=== PATIENT | female | born 1970 | race Caucasian/White ===

== ENCOUNTER 2018-10-04 21:22 | Observation (INO) | payer MEDICAID ==
[~2018-10-04] VITALS: Ht 167.6 cm; Wt 101.2 kg
[2018-10-04 21:31] VITALS: Ht 167.6 cm; Wt 101.2 kg
[2018-10-04] MEDS ORDERED: ASPIRIN 81 MG TAB PO STA (21:42)
[2018-10-04] MEDS ORDERED: NITROGLYCERIN 2% 1 GM OINT PKT TD STA (21:42)
[2018-10-04] MEDS ORDERED: NITROGLYCERIN (SL) 0.4 MG TAB SL PRN (22:00)
[2018-10-04] MEDS ORDERED: morphine 4 MG/ML VIAL IV STA (22:20)
[2018-10-04] MEDS ORDERED: ONDANSETRON 4 MG INJ IV STA (22:20)
--- NOTE | 2018-10-04 22:25 | ERD ---
ER Documentation Chief Complaint Chief Complaint C/O LT SIDED CP RADIATING TO BACK SINCE LAST NIGHT, LT ARM NUMBNESS HPI During the patient's encounter translation services were utilized Language: [Aremenian] Source: [Family] 48-year-old female history borderline BMI who presents to the emergency with chest pain. 24 hours of symptoms including chest pressure that is pressure-like rating to the left arm without migratory pain to the back. The patient does describe some generalized fatigue, left arm numbness and occasional headaches consistent with chronic headaches. Patient denies any pleuritic pain fevers chills or cough. The patient denies any recent travel, immobilization or calf swelling. Pain is currently presently 5 out of 10. ROS All systems reviewed and are negative except as per history of present illness. Medications Home Meds No Active Prescriptions or Reported Meds Allergies Allergies: Coded Allergies: No Known Allergy (Unverified , 10/04/18) PMhx/Soc Medical and Surgical Hx: pt denies Medical Hx, pt denies Surgical Hx Hx Alcohol Use: No Hx Substance Use: No Hx Tobacco Use: No Smoking Status: Never smoker FmHx Family History: No diabetes Physical Exam Vitals Vital Signs Date Temp Pulse Resp B/P (MAP) Pulse Ox O2 O2 Flow FiO2 Time Delivery Rate 10/04/18 97.8 89 20 124/70 100 Room Air 21:42 (88) 10/04/18 97.8 59 20 121/79 100 21:31 (93) Physical Exam General: Well developed, well nourished, no acute distress Head: Normocephalic, atraumatic. Eyes: Pupils equally reactive, EOM intact ENT: Moist mucous membranes Neck: Supple, no lymphadenopathy Respiratory: Lungs clear bilaterally, no distress Cardiovascular: RRR, no murmurs, rubs, or gallops Abdominal: Soft, non-tender, non-distended, no peritoneal signs : Deferred MSK: No edema, no unilateral swelling, 5/5 strength Neurologic: Alert and oriented, moving all extremities, normal speech, no focal weakness, no cerebellar signs Skin: No rash Psych: Normal mood Result Diagram: 10/04/18214910/04/182149 Results 24 hrs Laboratory Tests Test 10/04/18 21:50 10/04/18 22:10 White Blood Count 9.0 10^3/ul Red Blood Count 4.41 10^6/ul Hemoglobin 12.4 g/dl Hematocrit 38.8 % Mean Corpuscular Volume 88.0 fl Mean Corpuscular Hemoglobin 28.1 pg Mean Corpuscular Hemoglobin Concent 32.0 g/dl Red Cell Distribution Width 12.8 % Platelet Count 288 10^3/UL Mean Platelet Volume 10.7 fl Immature Granulocytes % 0.200 % Neutrophils % 45.5 % Lymphocytes % 44.6 % Monocytes % 6.3 % Eosinophils % 3.0 % Basophils % 0.4 % Nucleated Red Blood Cells % 0.0 /100WBC Immature Granulocytes # 0.020 10^3/ul Neutrophils # 4.1 10^3/ul Lymphocytes # 4.0 10^3/ul Monocytes # 0.6 10^3/ul Eosinophils # 0.3 10^3/ul Basophils # 0.0 10^3/ul Nucleated Red Blood Cells # 0.0 10^3/ul Sodium Level 140 mmol/L Potassium Level 4.0 mmol/L Chloride Level 104 mmol/L Carbon Dioxide Level 26 mmol/L Anion Gap 10 Blood Urea Nitrogen 13 mg/dl Creatinine 0.49 mg/dl Est Glomerular Filtrat Rate mL/min > 60 mL/min Glucose Level 97 mg/dl Calcium Level 10.0 mg/dl Troponin I < 0.012 ng/ml POC Beta HCG, Qualitative NEGATIVE Current Medications Medications Dose Sig/Breana Start Time Status Last (Trade) Ordered Route PRN Stop Time Admin Dose Reason Admin Aspirin 162 mg ONCE STAT 10/04/18 DC 10/04/18 (Aspirin) PO 21:42 22:10 10/04/18 21:43 1 inch ONCE STAT 10/04/18 DC 10/04/18 Nitroglycerin TD 21:42 22:10 10/04/18 21:43 (Nitroglyceri n 2% Oint) 1 tab Q5M UP TO 3 10/04/18 Nitroglycerin DOSES PRN 22:00 SL .CHEST (Nitroglyceri PAIN n (Sl Tab) 0.4 Mg) Morphine 4 mg ONCE STAT 10/04/18 DC 10/04/18 Sulfate IV 22:20 22:37 (morphine) 10/04/18 22:21 Ondansetron 4 mg ONCE STAT 10/04/18 DC 10/04/18 HCl (Zofran IV 22:20 22:37 Inj) 10/04/18 22:21 Ondansetron 4 mg ER BRIDGE 3/22/19 HCl (Zofran PRN IV 00:30 Inj) NAUSEA/VOMITI 10/06/18 00:29 NG 650 mg ER BRIDGE 10/05/18 Acetaminophen PRN PO 00:30 (Tylenol .MILD PAIN 10/06/18 00:29 Tab) 1-3 OR TEMP Procedures/MDM EKG, MONITORS, & DIAGNOSTIC IMAGING: EKG: I reviewed and interpreted a 12-lead EKG. Rhythm: Normal sinus rhythm ST Changes: No contiguous ST segment elevations T waves: No contiguous T wave inversions Impression: No evidence of acute cardiac ischemia Repeat EKG: EKG: I reviewed and interpreted a 12-lead EKG. Rhythm: Normal sinus rhythm ST Changes: No contiguous ST segment elevations T waves: No contiguous T wave inversions Impression: No evidence of acute cardiac ischemia Chest x-ray: I reviewed and interpreted a 1 view of the chest Mediastinum: No enlargement Cardiac silhouette: No cardiomegaly Airspace: Clear lung michel bilaterally without evidence of pneumothorax Bones: No evidence of fracture PROCEDURES: None LAB INTERPRETATION: * Negative troponin MEDICAL DECISION MAKING: The patient's history, physical exam and clinical presentation is concerning for possible cardiogenic etiology and acute coronary syndrome. I do not have a better alternative diagnosis. The patient's initial blood pressure was normal. During her ER course her blood pressure did escalate in the 200 range. Patient did not have any change in her blood pressure. Consider possible hypertensive urgency. I do not believe this is consistent with dissection given the duration of symptoms and normal blood pressure at home without alternative risk factors for dissection. The patient does not have migratory pain that would lead me to this diagnosis. As long his mediastinum is normal and chest x-ray do not believe CT of the chest is necessary. Based on the patient's clinical exam and history and risk factors, I have a much lower clinical concern for pulmonary embolism, acute aortic dissection, pneumothorax, pneumonia, cardiac tamponade HEART Score: 3 MACE Rate: 1.7% Shared Decision Making: We had a conversation regarding risk stratification, MACE rate, and the risks, benefits, alternatives of disposition planning options. Disposition planning: Family would like to discuss discharge planning and understand my recommendation of hospitalization ER COURSE: * Aspirin nitro morphine provided * Chest pain and blood pressure improved. * Patient request inpatient hospital station which I believe is reasonable based on her goals of care, risk stratification discussion. CONSULTATION: None DISPOSITION PLAN: Telemetry admission for management of chest pain to rule out acute coronary syndrome, serial enzymes, risk stratification and consideration of provocative testing CONSULTATION: Accepting care team and consultations: I discussed the current laboratory data, diagnostic imaging and emergency care provided. Admitting team: Dr. Draper Admitting team indication: Insurance directed Departure Diagnosis: Primary Impression: Chest pain Chest pain type: unspecified Qualified Codes: R07.9 - Chest pain, unspecified Additional Impression: Hypertensive urgency Condition: Stable JAJA FARIA MD Oct 04, 2018 22:24
[2018-10-05] VITALS (10 sets, daily range): BP systolic 109–142; BP diastolic 55–73; PULSE 57–86; RESP 18–19
[2018-10-05] MEDS ORDERED: BISACODYL (EC) 5 MG TAB PO PRN (00:30)
[2018-10-05] MEDS ORDERED: ONDANSETRON 4 MG INJ IV PRN (00:30)
[2018-10-05] MEDS ORDERED: NACL 0.9% 3 ML SYG IV SCH (00:30)
[2018-10-05] MEDS ORDERED: ACETAMINOPHEN 325 MG TAB PO PRN ×2 (00:30)
[2018-10-05] MEDS ORDERED: NITROGLYCERIN (SL) 0.4 MG TAB SL PRN (00:30)
[2018-10-05] MEDS ORDERED: DOCUSATE SODIUM 100 MG CAP PO PRN (00:30)
--- NOTE | 2018-10-05 03:19 | HP ---
Date/Time of Note Date/Time of Note DATE: 10/05/18 TIME: 03:18 Assessment/Plan VTE Prophylaxis SCD applied (from Nsg): Yes Pharmacological prophylaxis: NA/contraindicated Pharm contraindication: low risk/ambulating Lines/Catheters IV Catheter Type (from Nrsg): Saline Lock Assessment/Plan Hospital Course This is a 48-year female being admitted to the telemetry floor for: #1: Chest pain: Rule out ACS versus anginal equivalent. Patient does report symptoms of chest pain on exertion and at rest With it being worse over the last 24 hours. Will check cardiac enzymes x3, the first that was negative. Will order an echocardiogram. PRN nitro/morphine for pain. Will check hemoglobin A 1C, lipid panel, TSH. Will consult cardiology Dr. Combs as I do feel patient may benefit from a stress test. #2 obesity: We will check hemoglobin A 1C, lipid panel, TSH, encourage diet and lifestyle modification #3 asthma: Monitor closely PRN inhalers indicated #4 DVT GI prophylaxis: SCDs, no GI prophylaxis indicated Result Diagram: 10/04/18214910/04/182149 Results 24hrs Laboratory Tests Test 10/04/18 21:50 10/04/18 22:10 White Blood Count 9.0 Red Blood Count 4.41 Hemoglobin 12.4 Hematocrit 38.8 Mean Corpuscular Volume 88.0 Mean Corpuscular Hemoglobin 28.1 L Mean Corpuscular Hemoglobin Concent 32.0 Red Cell Distribution Width 12.8 Platelet Count 288 Mean Platelet Volume 10.7 H Immature Granulocytes % 0.200 Neutrophils % 45.5 Lymphocytes % 44.6 Monocytes % 6.3 Eosinophils % 3.0 Basophils % 0.4 Nucleated Red Blood Cells % 0.0 Immature Granulocytes # 0.020 Neutrophils # 4.1 Lymphocytes # 4.0 H Monocytes # 0.6 Eosinophils # 0.3 Basophils # 0.0 Nucleated Red Blood Cells # 0.0 Sodium Level 140 Potassium Level 4.0 Chloride Level 104 Carbon Dioxide Level 26 Anion Gap 10 Blood Urea Nitrogen 13 Creatinine 0.49 Est Glomerular Filtrat Rate mL/min > 60 Glucose Level 97 Calcium Level 10.0 Troponin I < 0.012 POC Beta HCG, Qualitative NEGATIVE HPI/ROS Admit Date/Time Admit Date/Time Oct 05, 2018 at 00:06 Hx of Present Illness Chief complaint: Chest pain times 1 day This is a 48-year-old female with a history of asthma who presented s to the emergency with chest pain. 24 hours of symptoms including chest pressure that is pressure-like rating to the left arm without migratory pain to the back. The patient does describe some generalized fatigue, left arm numbness and occasional headaches consistent with chronic headaches. Patient denies any pleuritic pain fevers chills or cough. The patient denies any recent travel, immobilization or calf swelling. Patient does report that she received relief with morphine in the emergency department for the pain. She describes the pain as a pressure/burning sensation on her chest. She states that she has been experiencing pain at rest and on exertion for the last few weeks. She denies any lower extremity swelling. Allergies: NKDA Medications: None ROS Const: As per HPI Eyes : No pain discharge or redness or change in visual acuity ENT: No pain, sore throat, congestion, congestion, dysphagia or discharge Respiratory: No shortness of breath, cough, sputum, wheezing, or pleuritic pain Cardiovascular: As per HPI GI : no change in appetite, abdominal pain, nausea, vomiting, diarrhea, constipation, or change in the color his stool Genitourinary: No dysuria, hematuria, flank pain , discharge or CVA tenderness Musculoskeletal: No joint pain, back pain, neck pain, restricted range of motion in neck or joints Skin: No rash, bruising or hives Neuro: No headache, dizziness, syncope, seizure, focal weakness Endocrine: No polyuria, polydipsia, temperature intolerance Psych: No hallucination, depression, anxiety or suicidal ideation PMH/Family/Social Past Medical History Asthma Medications Current Medications Nitroglycerin (Nitroglycerin (Sl Tab) 0.4 Mg) 1 tab Q5M UP TO 3 DOSES PRN SL .CHEST PAIN; Start 10/04/18 at 22:00 Ondansetron HCl (Zofran Inj) 4 mg ER BRIDGE PRN IV NAUSEA/VOMITING; Start 10/05/18 at 00:30; Stop 10/06/18 at 00:29 Acetaminophen (Tylenol Tab) 650 mg ER BRIDGE PRN PO .MILD PAIN 1-3 OR TEMP; Start 10/05/18 at 00:30; Stop 10/06/18 at 00:29 IV Flush (NS 3 ml) 3 ml PER PROTOCOL IV ; Start 10/05/18 at 00:30 Aspirin (Aspirin) 81 mg DAILY PO ; Start 10/05/18 at 09:00 Nitroglycerin (Nitroglycerin (Sl Tab) 0.4 Mg) 1 tab Q5M PRN SL .CHEST PAIN; Start 10/05/18 at 00:30 Acetaminophen (Tylenol Tab) 650 mg Q6H PRN PO .PAIN 1-3 OR TEMP; Start 10/05/18 at 00:30 Morphine Sulfate (morphine) 2 mg Q4H PRN IV .PAIN 7-10; Start 10/05/18 at 00:30 Docusate Sodium (Colace) 100 mg Q12H PRN PO .CONSTIPATION; Start 10/05/18 at 00:30 Bisacodyl (Dulcolax) 5 mg DAILY PRN PO .CONSTIPATION; Start 10/05/18 at 00:30 Coded Allergies: No Known Allergy (Unverified , 10/04/18) Past Surgical History Past Surgical Hx: no surgical history Family History Significant Family History: no pertinent family hx Social History Alcohol Use: occasionally Smoking Status: Never smoker Drug Use: none Exam/Review of Systems Vital Signs Vitals Vital Signs Date Temp Pulse Resp B/P (MAP) Pulse Ox O2 O2 Flow FiO2 Time Delivery Rate 10/05/18 97.6 63 18 142/66 100 Room Air 02:56 (91) Exam Exam General: Patient is a pleasant female currently lying in bed in no acute distress. HEENT: Atraumatic, normocephalic. The pupils are equal, round and reactive. Extraocular motor are intact Neck: Supple with full range of motion. No rigidity or meningismus Chest: Mild left chest wall tenderness to palpation Lungs: Clear to auscultation bilaterally no crackles rales or wheezing Heart: Normal S1-S2, Regular rhythm and rate. No murmur, S3, or S4 Abdomen: Obese, soft , nontender, nondistended , bowel sounds are present. No guarding no rebound tenderness , No masses or organomegaly. No costovertebral temporal angle mass Extremities: Normal to inspection, no edema no cyanosis Neurologic: Normal mental status, speech normal, cranial nerves II through XII are intact, motor and sensory are intact, no focal weakness Additional Comments EKG: Rhythm: Normal sinus rhythm ST Changes: No contiguous ST segment elevations T waves: No contiguous T wave inversions Impression: No evidence of acute cardiac ischemia PROCEDURE: XR Chest. CLINICAL INDICATION: Chest pain TECHNIQUE: Single portable view of the chest was obtained COMPARISON: No priors for comparison FINDINGS: The trachea is midline. The cardiac silhouette is mildly enlarged and pulmonary vascularity are within normal limits. The lungs are clear. The costophrenic angles are sharp. IMPRESSION: 1. Mild cardiomegaly. No evidence of acute cardiopulmonary disease. RPTAT: AAPP Clay Bernal Physician Date Time Electronically viewed and signed by Clay Bernal Physician on 10/04/2018 23:57 JL/ CC: RESHMA PAREKH MD [id number] YVES LOPEZ Oct 05, 2018 03:19
[2018-10-05] MEDS: morphine 2 MG INJ IV PRN ×2 (03:52→17:57)
[2018-10-05] MEDS ORDERED: ALBUTEROL HFA 8 GM INHALER INH PRN (04:00)
[2018-10-05] MEDS: ASPIRIN 81 MG TAB PO SCH (08:53)
--- NOTE | 2018-10-05 12:14 | PN ---
Date/Time of Note Date/Time of Note DATE: 10/05/18 TIME: 12:13 Assessment/Plan VTE Prophylaxis Risk score (from Ns)>0 risk: 2 SCD applied (from Ns): Yes Pharmacological prophylaxis: NA/contraindicated Pharm contraindication: low risk/ambulating Lines/Catheters [facility] Saline Lock Assessment/Plan Hospital Course SUBJECTIVE: Denies any chest pain at this time. OBJECTIVE: Physical Exam General: Obese, 48-year-old female lying in bed in no apparent distress. HEENT: Normocephalic, atraumatic. Eyes: Anicteric sclerae, conjunctivae clear. ENT: Nasal septum midline, oral mucosa moist. Neck supple, no JVD noticed. Respiratory: Bilaterally clear breath sounds. No use of accessory muscles of respiration. No adventitious breath sounds. Cardiovascular: S1, S2 heard. Regular rate and rhythm. Abdomen: Soft, nontender, and nondistended. Bowel sounds positive in all 4 quadrants. Genitourinary: Deferred. Extremities: No cyanosis, no clubbing, no edema. Peripheral pulses palpable. Neurologic: Cranial nerves II through XII grossly intact. The patient is awake, alert, and oriented. Skin: Normal skin turgor. No skin rashes. Labs & Vitals per chart ASSESSMENT & PLAN 48-year-old female with comorbidities including obesity and asthma who came to the emergency room with chief complaint of chest pain. The patient verbalized the pain as pressure-like with a radiation to the left arm. The patient was admitted to inpatient setting for further treatment and evaluation. 1. Chest pain. -To rule out ACS -Monitor serial troponins. -Pending 2D echocardiogram. -Pending cardiology evaluation. -Continue aspirin. 2. Obesity. -BMI 36 kg/m. -Advised weight reduction. 3. Asthma. -Continue PRN ARCHIE. -No evidence of acute exacerbation. 4. Fluids, electrolytes, and nutrition. -Low-cholesterol diet. 5. DVT prophylaxis. -Bilateral SCDs. 6. Plan. -Continue telemetry monitoring. -Await cardiology evaluation The patient was seen in collaboration with Dr. Calzada. - Result Diagram: 10/05/1852110/05/18521 Results 24hrs Laboratory Tests Test 10/04/18 21:50 10/04/18 22:10 10/05/18 05:22 10/05/18 05:23 White Blood Count 9.0 6.3 # Red Blood Count 4.41 3.91 L Hemoglobin 12.4 11.0 L Hematocrit 38.8 34.7 L Mean Corpuscular 88.0 88.7 Volume Mean Corpuscular 28.1 L 28.1 L Hemoglobin Mean Corpuscular 32.0 31.7 L Hemoglobin Concent Red Cell 12.8 12.7 Distribution Width Platelet Count 288 222 # Mean Platelet Volume 10.7 H 10.5 H Immature 0.200 0.300 Granulocytes % Neutrophils % 45.5 42.1 Lymphocytes % 44.6 46.2 Monocytes % 6.3 7.1 Eosinophils % 3.0 3.8 Basophils % 0.4 0.5 Nucleated Red Blood 0.0 0.0 Cells % Immature 0.020 0.020 Granulocytes # Neutrophils # 4.1 2.7 Lymphocytes # 4.0 H 2.9 Monocytes # 0.6 0.5 Eosinophils # 0.3 0.2 Basophils # 0.0 0.0 Nucleated Red Blood 0.0 0.0 Cells # Sodium Level 140 143 Potassium Level 4.0 4.0 Chloride Level 104 105 Carbon Dioxide Level 26 29 Anion Gap 10 9 Blood Urea Nitrogen 13 10 Creatinine 0.49 0.51 Est Glomerular > 60 > 60 Filtrat Rate mL/min Glucose Level 97 88 Calcium Level 10.0 9.5 Troponin I < 0.012 < 0.012 POC Beta HCG, NEGATIVE Qualitative Hemoglobin A1c 5.3 Magnesium Level 2.0 Total Bilirubin 0.4 Direct Bilirubin 0.00 Indirect Bilirubin 0.4 Aspartate Amino 17 Transf (AST/SGOT) Alanine 20 Aminotransferase (AL T/SGPT) Alkaline Phosphatase 60 Total Protein 6.7 Albumin 3.6 Globulin 3.10 Albumin/Globulin 1.16 Ratio Triglycerides Level 63 Cholesterol Level 141 LDL Cholesterol, 84 Calculated HDL Cholesterol 44 Cholesterol/HDL 3.2 Ratio Thyroid Stimulating 3.150 Hormone (TSH) Creatine Kinase 39 Creatine Kinase 1.1 Index Creatinine Kinase MB 0.44 (Mass) Test 10/05/18 09:36 Creatine Kinase 41 Creatine Kinase 0.8 Index Creatinine Kinase MB 0.33 (Mass) Troponin I < 0.012 Exam/Review of Systems Exam Vitals Vital Signs Date Temp Pulse Resp B/P (MAP) Pulse Ox O2 O2 Flow FiO2 Time Delivery Rate 10/05/18 97.5 86 18 113/59 99 11:49 (77) 10/05/18 Room Air 02:56 Intake and Output 10/04/18 10/04/18 10/05/18 1515:00 23:00 07:00 IntakeIntake Total 250 ml BalanceBalance 250 ml Results Results 24hrs Laboratory Tests Test 10/04/18 21:50 10/04/18 22:10 10/05/18 05:22 10/05/18 05:23 White Blood Count 9.0 6.3 # Red Blood Count 4.41 3.91 L Hemoglobin 12.4 11.0 L Hematocrit 38.8 34.7 L Mean Corpuscular 88.0 88.7 Volume Mean Corpuscular 28.1 L 28.1 L Hemoglobin Mean Corpuscular 32.0 31.7 L Hemoglobin Concent Red Cell 12.8 12.7 Distribution Width Platelet Count 288 222 # Mean Platelet Volume 10.7 H 10.5 H Immature 0.200 0.300 Granulocytes % Neutrophils % 45.5 42.1 Lymphocytes % 44.6 46.2 Monocytes % 6.3 7.1 Eosinophils % 3.0 3.8 Basophils % 0.4 0.5 Nucleated Red Blood 0.0 0.0 Cells % Immature 0.020 0.020 Granulocytes # Neutrophils # 4.1 2.7 Lymphocytes # 4.0 H 2.9 Monocytes # 0.6 0.5 Eosinophils # 0.3 0.2 Basophils # 0.0 0.0 Nucleated Red Blood 0.0 0.0 Cells # Sodium Level 140 143 Potassium Level 4.0 4.0 Chloride Level 104 105 Carbon Dioxide Level 26 29 Anion Gap 10 9 Blood Urea Nitrogen 13 10 Creatinine 0.49 0.51 Est Glomerular > 60 > 60 Filtrat Rate mL/min Glucose Level 97 88 Calcium Level 10.0 9.5 Troponin I < 0.012 < 0.012 POC Beta HCG, NEGATIVE Qualitative Hemoglobin A1c 5.3 Magnesium Level 2.0 Total Bilirubin 0.4 Direct Bilirubin 0.00 Indirect Bilirubin 0.4 Aspartate Amino 17 Transf (AST/SGOT) Alanine 20 Aminotransferase (AL T/SGPT) Alkaline Phosphatase 60 Total Protein 6.7 Albumin 3.6 Globulin 3.10 Albumin/Globulin 1.16 Ratio Triglycerides Level 63 Cholesterol Level 141 LDL Cholesterol, 84 Calculated HDL Cholesterol 44 Cholesterol/HDL 3.2 Ratio Thyroid Stimulating 3.150 Hormone (TSH) Creatine Kinase 39 Creatine Kinase 1.1 Index Creatinine Kinase MB 0.44 (Mass) Test 10/05/18 09:36 Creatine Kinase 41 Creatine Kinase 0.8 Index Creatinine Kinase MB 0.33 (Mass) Troponin I < 0.012 Medications Medication Current Medications Nitroglycerin (Nitroglycerin (Sl Tab) 0.4 Mg) 1 tab Q5M UP TO 3 DOSES PRN SL .CHEST PAIN; Start 10/04/18 at 22:00 Ondansetron HCl (Zofran Inj) 4 mg ER BRIDGE PRN IV NAUSEA/VOMITING; Start 10/05/18 at 00:30; Stop 10/06/18 at 00:29 Acetaminophen (Tylenol Tab) 650 mg ER BRIDGE PRN PO .MILD PAIN 1-3 OR TEMP; Start 10/05/18 at 00:30; Stop 10/06/18 at 00:29 IV Flush (NS 3 ml) 3 ml PER PROTOCOL IV ; Start 10/05/18 at 00:30 Aspirin (Aspirin) 81 mg DAILY PO Last administered on 10/05/18at 08:53; Admin Dose 81 MG; Start 10/05/18 at 09:00 Nitroglycerin (Nitroglycerin (Sl Tab) 0.4 Mg) 1 tab Q5M PRN SL .CHEST PAIN; Start 10/05/18 at 00:30 Acetaminophen (Tylenol Tab) 650 mg Q6H PRN PO .PAIN 1-3 OR TEMP; Start 10/05/18 at 00:30 Morphine Sulfate (morphine) 2 mg Q4H PRN IV .PAIN 7-10 Last administered on 10/05/18at 03:52; Admin Dose 2 MG; Start 10/05/18 at 00:30 Docusate Sodium (Colace) 100 mg Q12H PRN PO .CONSTIPATION; Start 10/05/18 at 00:30 Bisacodyl (Dulcolax) 5 mg DAILY PRN PO .CONSTIPATION; Start 10/05/18 at 00:30 Albuterol (Ventolin Hfa) 2 puff Q4H RESP THERAPY PRN INH SHORTNESS OF BREATH; Start 10/05/18 at 04:00 LAKHWINDER PRADHAN NP Oct 05, 2018 12:14
--- NOTE | 2018-10-05 19:45 | RADRPT ---
Echocardiogram Report Patient Name: CHER CONDONPatient ID: [id number] : 1970 (48y 9m)Study Date: 10/05/2018 7:09:36 AM Gender: FAccession #: [id number] Tech: Elvia Torres BRANDON Location: 623 Ref.Physician: YVES LOPEZ Height(Cm): BSA: Weight(Kg): Quality: AdequateAccount #: Procedures: Echocardiographic Report: Transthoracic echocardiogram with complete 2D, M-Mode, and doppler examination. Indications: Chest Pain. Measurements: 2D/M Mode Doppler Measurement Value Normal Range Measurement Value Normal Range LVIDd 2D 4.4 [ 3.8 - 5.2 ] cm AV Peak Mu 1.5 [ 100.0 - 170.0 ] cm/sec LVIDs 2D 2.7 [ 2.2 - 3.5 ] cm AV Peak PG 9.0 [ 2.0 - 9.0 ] mmHg LVPWd 2D 1.1 [ 0.6 - 0.9 ] cm LVOT Peak Mu 1.0 [ 70.0 - 110.0 ] cm/sec IVSd 2D 1.3 [ 0.6 - 0.9 ] cm LVOT Peak PG 4.0 [ 2.0 - 6.0 ] mmHg AoR Diam 2D 2.6 [ 2.3 - 3.1 ] cm MV E Peak Mu 0.7 [ 60.0 - 130.0 ] cm/sec EDV 2D 86.8 [ 46.0 - 106.0 ] ml MV A Peak Mu 0.8 [ 100.0 - 120.0 ] cm/sec ESV 2D 27.5 [ 14.0 - 42.0 ] ml MV E/A 0.8 [ 0.8 - 1.5 ] ratio EF 2D 68.3 [ 54.0 - 74.0 ] percent MV Decel Time 254 [ 104 - 258 ] msec LA Dimen 2D 3.3 [ 2.7 - 3.8 ] cm Lat E` Mu 0.2 [ 10.0 - 15.0 ] cm/sec Lateral E/E` 4.3 [ 1.0 - 2.0 ] ratio Med E` Mu 0.1 cm/sec MV E/A 0.8 [ 0.8 - 1.5 ] ratio TR Peak Mu 2.4 [ 100.0 - 280.0 ] cm/sec TR Peak PG 23.0 mmHg RVSP 26.0 [ 10.0 - 36.0 ] mmHg RA Pressure 3.0 mmHg Findings: Left Ventricle: Lower limits of normal systolic function. Normal left ventricular cavity size. Ejection fraction is visually estimated at 50-55 %. Abnormal Diastolic Function. Right Ventricle: Normal right ventricular size. Normal right ventricular systolic function. Left Atrium: The left atrium is normal in size. Right Atrium: The right atrium is normal in size. Mitral Valve: Normal appearance and function of the mitral valve with trace physiologic regurgitation. Aortic Valve: Normal appearance of the aortic valve. No significant aortic stenosis or insufficiency. Tricuspid Valve: Normal appearance and function of the tricuspid valve with trace physiologic regurgitation. Normal right ventricular systolic pressure. Pulmonic Valve: Normal pulmonic valve appearance. Pericardium: Normal pericardium with no significant pericardial effusion. Aorta: Normal aortic root. IVC: Normal size and normal respiratory collapse consistent with normal right atrial pressure. Conclusions: Lower limits of normal systolic function. Normal left ventricular cavity size. Ejection fraction is visually estimated at 50-55 %. Abnormal Diastolic Function. Normal appearance and function of the tricuspid valve with trace physiologic regurgitation. Normal right ventricular systolic pressure. Normal appearance and function of the mitral valve with trace physiologic regurgitation. Electronically Signed By: lA Combs 2018-10-05 19:43:41 PDT
--- NOTE | 2018-10-05 19:47 | CONS ---
DATE OF ADMISSION: 10/05/2018 DATE OF CONSULTATION: 10/05/2018 TYPE OF CONSULTATION: Cardiology. REASON FOR CONSULTATION: Chest pain, assess for acute coronary syndrome. REQUESTING PHYSICIAN: Yves Draper MD, from the hospitalist service. HISTORY OF PRESENT ILLNESS: Ms. Webster is a 48-year-old female with a history of asthma, hypertension, who presents with complaints of substernal chest pain. The patient states she has had chest pain for a couple of weeks and it began to get worse on the day of admit. The patient states the chest pain continues to come and go both at rest and with exertion and describes it as a pressure-like sensation with a burning component. Upon arrival in the emergency department, temperature was 97.8, blood pressure 121/79, pulse 59, respiratory 20, satting 100%. The patient's labs showed sodium 140, potassium 4.0, creatinine 0.49, BUN 13, troponin negative. White blood cell count 9, hemoglobin 12.4, platelet count of 288. The patient underwent a chest x-ray revealing mild cardiomegaly, no evidence of acute cardiopulmonary abnormalities. The patient's electrocardiogram revealed normal sinus, rate of 69, normal axis, normal intervals, isolated T-wave flattening in aVL. The patient subsequently has been admitted to the floor and since admit to floor has had negative troponins x2. PAST MEDICAL HISTORY: As above in HPI. MEDICATIONS CURRENTLY IN HOSPITAL: 1. Aspirin 81 mg daily. 2. Albuterol. 3. Zofran. 4. Tylenol. 5. Sublingual nitroglycerin p.r.n. 6. Morphine. 7. Colace. 8. Dulcolax. ALLERGIES: NO KNOWN DRUG ALLERGIES. SOCIAL HISTORY: No current tobacco, EtOH or illicit drugs. FAMILY HISTORY: No history of sudden cardiac or early CAD. REVIEW OF SYSTEMS: As above in HPI. CONSTITUTIONAL: No fevers, chills. PULMONARY: No current shortness of breath. CARDIOVASCULAR: Intermittent chest pain. GASTROINTESTINAL: No vomiting. GENITOURINARY: No hematuria. MUSCULOSKELETAL: Degenerative joint disease. PSYCHIATRIC: No documented psych history. NEUROLOGIC: No documented history of CVA. ENDOCRINE: No documented history of diabetes mellitus. PHYSICAL EXAMINATION: VITAL SIGNS: Temperature 97.6, blood pressure 142/66, pulse 63, respiratory rate 18, satting 100%. GENERAL: The patient is alert, awake, complaining of substernal chest pain, left-sided. NECK: JVP approximately is 8 to 9 cm water. CHEST: Fair air movement throughout. HEART: Regular rate and rhythm. Normal S1, S2, I/ systolic murmur, nondisplaced PMI. ABDOMEN: Positive bowel sounds, soft. EXTREMITIES: No significant pitting edema, 1+ pulses bilateral posterior tibial. LABORATORY DATA: Most recently from today, sodium 143, potassium 4.0, creatinine 0.5, BUN 15. LDL 84, HDL 44. White blood cell count 6.3, hemoglobin 11.0, platelet count 222. IMAGING STUDIES: As above in HPI. No further imaging studies for my review at this time. ELECTROCARDIOGRAM: As above in HPI. No further electrocardiograms for my review at this time. IMPRESSION: 1. Chest pain, assess for acute coronary syndrome with negative troponins x2, somewhat atypical for cardiac etiology this time. 2. Abnormal electrocardiogram with nonspecific ST wave abnormalities. 3. History of asthma. 4. Labile hypertension. RECOMMENDATIONS: 1. At this time, we would maintain the patient on telemetry monitoring to follow rhythm and rate closely. 2. We will complete patient's rule out for myocardial infarction and thus send final troponin. 3. Give patient sublingual nitroglycerin for recurrent episodes of chest pain and consider standing oral nitrates for ongoing chest pain. 4. We will follow the patient's 2D echo done for assessment of ejection fraction, wall motion or major valve abnormalities. 5. We will check fasting lipid panel for general risk stratification and initiate lipid-lowering medication as necessary. 6. If patient continues to have chest pain, then at that time we will place patient in for a cardiac stress test to take place in the morning to further assess for possibly significant obstructive coronary artery disease lending to symptoms of chest pain and EKG abnormalities and subsequent admit to the hospital. Thank you for allowing me to take part in the care of this patient. I will continue to follow her very closely with you with further recommendations to be made as the patient progresses through her inpatient hospital clinical course. Dictated By: DANA DAVIS/NALLELY Conf#: [id number] DID#: [id number] CC: YVES DRAPER MD;*EndCC* MTDD
[2018-10-05] MEDS: ISOSORBIDE DINITRATE 10 MG TAB PO SCH (20:23)
[2018-10-06] VITALS (8 sets, daily range): BP systolic 108–144; BP diastolic 54–71; PULSE 57–82; RESP 18
[2018-10-06] MEDS: ASPIRIN 81 MG TAB PO SCH (08:46)
[2018-10-06] MEDS: ISOSORBIDE DINITRATE 10 MG TAB PO SCH (08:46)
[2018-10-06] MEDS ORDERED: REGADENOSON 0.4 MG/5 ML SYG ONE (12:03)
--- NOTE | 2018-10-06 12:44 | CONS ---
Assessment/Plan Assessment/Plan Hospital Course (Demo Recall) IMPRESSION: 1. Chest pain, assess for acute coronary syndrome with negative troponins x2, somewhat atypical for cardiac etiology this time. 2. Abnormal electrocardiogram with nonspecific ST wave abnormalities. 3. History of asthma. 4. Labile hypertension. Recc: -Tele -Contiue asa -Continue oral nitrates -Lexiscan stress test today and if negative ok for d/c from cardiac standpoint. Consultation Date/Type/Reason Admit Date/Time Oct 05, 2018 at 00:06 Initial Consult Date 10/05/18 Type of Consult Cardiology Reason for Consultation chest pain Requesting Provider: ZAKIA MERINO MD Date/Time of Note DATE: 10/06/18 TIME: 12:39 Exam/Review of Systems Vital Signs Vitals Vital Signs Date Temp Pulse Resp B/P (MAP) Pulse Ox O2 O2 Flow FiO2 Time Delivery Rate 10/06/18 65 12:22 10/06/18 98.0 18 123/64 100 07:25 (83) 10/05/18 Room Air 02:56 Intake and Output 10/05/18 10/05/18 10/06/18 1515:00 23:00 07:00 IntakeIntake Total 600 ml 420 ml BalanceBalance 600 ml 420 ml Exam Exam Review of Systems: CONSTITUTIONAL: No fevers, chills. PULMONARY: No sob CARDIOVASCULAR: No chest pain/palpitations GASTROINTESTINAL: No nausea/vomiting. GENITOURINARY: No hematuria/dysuria. MUSCULOSKELETAL: No myagias/arthalgias. PSYCHIATRIC: The patient denies depression. NEUROLOGIC: No weakness Constitutional: alert Psych: no complaints Head: normocephalic ENMT: mucosa pink and moist Neck: supple, jvd (9 cm water) Respiratory: clear to auscultation Cardiovascular: regular rate and rhythm Gastrointestinal: soft, non-tender Musculoskeletal: muscle tone (nonr) Extremities: edema (none) Labs Result Diagram: 10/06/18 0512 10/06/18 0512 Results 24hrs Laboratory Tests Test 10/06/18 05:12 White Blood Count 5.9 Red Blood Count 4.12 L Hemoglobin 11.5 L Hematocrit 36.5 L Mean Corpuscular Volume 88.6 Mean Corpuscular Hemoglobin 27.9 L Mean Corpuscular Hemoglobin Concent 31.5 L Red Cell Distribution Width 12.8 Platelet Count 256 Mean Platelet Volume 10.6 H Immature Granulocytes % 0.300 Neutrophils % 37.8 L Lymphocytes % 49.8 Monocytes % 8.0 Eosinophils % 3.6 Basophils % 0.5 Nucleated Red Blood Cells % 0.0 Immature Granulocytes # 0.020 Neutrophils # 2.2 Lymphocytes # 2.9 Monocytes # 0.5 Eosinophils # 0.2 Basophils # 0.0 Nucleated Red Blood Cells # 0.0 Sodium Level 143 Potassium Level 4.3 Chloride Level 109 Carbon Dioxide Level 27 Anion Gap 7 Blood Urea Nitrogen 16 Creatinine 0.57 Est Glomerular Filtrat Rate mL/min > 60 Glucose Level 99 Calcium Level 9.4 Phosphorus Level 3.9 Magnesium Level 2.0 Total Bilirubin 0.1 L Direct Bilirubin 0.00 Indirect Bilirubin 0.1 Aspartate Amino Transf (AST/SGOT) 18 Alanine Aminotransferase (ALT/SGPT) 18 Alkaline Phosphatase 57 Total Protein 6.8 Albumin 3.5 Globulin 3.30 H Albumin/Globulin Ratio 1.06 Medications Medications Current Medications Nitroglycerin (Nitroglycerin (Sl Tab) 0.4 Mg) 1 tab Q5M UP TO 3 DOSES PRN SL .CHEST PAIN; Start 10/04/18 at 22:00 IV Flush (NS 3 ml) 3 ml PER PROTOCOL IV ; Start 10/05/18 at 00:30 Aspirin (Aspirin) 81 mg DAILY PO Last administered on 10/06/18at 08:46; Admin Dose 81 MG; Start 10/05/18 at 09:00 Nitroglycerin (Nitroglycerin (Sl Tab) 0.4 Mg) 1 tab Q5M PRN SL .CHEST PAIN; Start 10/05/18 at 00:30 Acetaminophen (Tylenol Tab) 650 mg Q6H PRN PO .PAIN 1-3 OR TEMP Last administered on 10/05/18at 15:16; Admin Dose 650 MG; Start 10/05/18 at 00:30 Morphine Sulfate (morphine) 2 mg Q4H PRN IV .PAIN 7-10 Last administered on 10/05/18at 17:57; Admin Dose 2 MG; Start 10/05/18 at 00:30 Docusate Sodium (Colace) 100 mg Q12H PRN PO .CONSTIPATION; Start 10/05/18 at 00:30 Bisacodyl (Dulcolax) 5 mg DAILY PRN PO .CONSTIPATION; Start 10/05/18 at 00:30 Albuterol (Ventolin Hfa) 2 puff Q4H RESP THERAPY PRN INH SHORTNESS OF BREATH; Start 10/05/18 at 04:00 Isosorbide Dinitrate (Isordil) 10 mg TID PO Last administered on 10/06/18at 08:46; Admin Dose 10 MG; Start 10/05/18 at 21:00 DANA SHANNON Oct 06, 2018 12:44
--- NOTE | 2018-10-06 14:59 | PDOCDIS ---
Discharge Instructions CONDITION [id number] Patient Condition: [id number] Stable HOME CARE INSTRUCTIONS: [id number] Diet Instructions: [id number] Low Fat /Cholesterol FOLLOW UP/APPOINTMENTS Follow-up Plan Follow-up with your primary care physician in 2 weeks. OTHER ORDERS: Other Orders: 1. Take a low-cholesterol diet. 2. Resume activities as tolerated. 3. Follow-up with your primary care physician in 2 weeks. 4. Please go to the nearest emergency room if you have any chest pain, significant shortness of breath, or any other unusual signs/symptoms. LAKHWINDER PRADHAN NP Oct 06, 2018 14:59
--- NOTE | 2018-10-06 15:50 | DS ---
Date/Time of Note Date/Time of Note DATE: 10/06/18 TIME: 15:48 Discharge Summary Admission/Discharge Info Admit Date/Time Oct 05, 2018 at 00:06 Discharge Date/Time Discharge Diagnosis 1. Atypical chest pain. 2. Obesity. BMI 36 kg/m. 3. Asthma. Patient Condition: Stable Consults 1. Al Combs MD, Cardiology. Procedures 2D Echocardiogram Conclusions: Lower limits of normal systolic function. Normal left ventricular cavity size. Ejection fraction is visually estimated at 50-55 %. Abnormal Diastolic Function. Normal appearance and function of the tricuspid valve with trace physiologic regurgitation. Normal right ventricular systolic pressure. Normal appearance and function of the mitral valve with trace physiologic regurgitation. Nuclear Medicine Cardiac Stress Test IMPRESSION: 1. No evidence of perfusion defects. 2. No wall motion abnormalities. 3. The left ventricle ejection fraction at stress is 55%. Hx of Present Illness This is a 48-year-old female with comorbidities including obesity and asthma who came to the emergency room with chief complaint of chest pain. The patient verbalized the pain as pressure-like with a radiation to the left arm. The patient was admitted to inpatient setting for further treatment and evaluation. Hospital Course The patient was monitored in telemetry floor. Serial troponins were ordered. A 2D echocardiogram was obtained. The patient's serial troponins remained negative. The patient's 2D echocardiogram was showing preserved left ventricular ejection fraction. The patient underwent a nuclear medicine cardiac stress test that was negative for any reversible perfusion defects. The patient was cleared by cardiology to be discharged home. The patient was initially maintained on aspirin therapy for any underlying ACS. However, since the patient was ruled out for ACS, this will be discontinued. The patient was also maintained on nitrate therapy as per cardiology. However, since the patient is ruled out for any ACS this will be discontinued. The patient's chronic problems include asthma. The patient was maintained on PRN ARCHIE for any acute exacerbation. The patient's asthma remained stable throughout the hospital course. The patient was also noticed to be morbidly obese with a BMI of 36 kg/m. The patient was advised on weight reduction. The patient's hemoglobin A1c was 5.3. The patient's fasting lipid panel was satisfactory. The patient had a stable hospital course. The patient is stable to be discharged home. Discharge Instructions 1. Take a low-cholesterol diet. 2. Resume activities as tolerated. 3. Follow-up with your primary care physician in 2 weeks. 4. Please go to the nearest emergency room if you have any chest pain, significant shortness of breath, or any other unusual signs/symptoms. The patient verbalized understanding of her discharge instructions. At this time I would like to thank Dr. Combs for seeing the patient and providing clinical recommendations. The patient was seen in collaboration with Dr. Calzada. Home Meds No Active Prescriptions or Reported Meds Follow-up Plan Follow-up with your primary care physician in 2 weeks. Primary Care Provider Not On Staff Doctor Time spent on discharge: > 30 minutes Pending Labs Laboratory Tests Test 10/06/18 05:12 White Blood Count 5.9 10^3/ul (4.8-10.8) Red Blood Count 4.12 10^6/ul (4.20-5.40) Hemoglobin 11.5 g/dl (12.0-16.0) Hematocrit 36.5 % (37.0-47.0) Mean Corpuscular Volume 88.6 fl (82.0-101.0) Mean Corpuscular Hemoglobin 27.9 pg (29.0-33.0) Mean Corpuscular Hemoglobin Concent 31.5 g/dl (32.0-37.0) Red Cell Distribution Width 12.8 % (11.5-14.5) Platelet Count 256 10^3/UL (140-415) Mean Platelet Volume 10.6 fl (7.4-10.4) Immature Granulocytes % 0.300 % (0.001-0.429) Neutrophils % 37.8 % (39.0-77.0) Lymphocytes % 49.8 % (15.0-51.0) Monocytes % 8.0 % (0.0-11.0) Eosinophils % 3.6 % (0.0-7.0) Basophils % 0.5 % (0.0-2.0) Nucleated Red Blood Cells % 0.0 /100WBC (0.0-0.0) Immature Granulocytes # 0.020 10^3/ul (0.0-0.031) Neutrophils # 2.2 10^3/ul (1.6-7.5) Lymphocytes # 2.9 10^3/ul (0.8-2.9) Monocytes # 0.5 10^3/ul (0.3-0.9) Eosinophils # 0.2 10^3/ul (0.0-0.5) Basophils # 0.0 10^3/ul (0.0-0.1) Nucleated Red Blood Cells # 0.0 10^3/ul (0.0-0.0) Sodium Level 143 mmol/L (135-144) Potassium Level 4.3 mmol/L (3.5-5.1) Chloride Level 109 mmol/L (97-110) Carbon Dioxide Level 27 mmol/L (21-31) Anion Gap 7 (5-13) Blood Urea Nitrogen 16 mg/dl (7-20) Creatinine 0.57 mg/dl (0.44-1.00) Est Glomerular Filtrat Rate mL/min > 60 mL/min (>60) Glucose Level 99 mg/dl (70-220) Calcium Level 9.4 mg/dl (8.4-10.2) Phosphorus Level 3.9 mg/dl (2.5-4.9) Magnesium Level 2.0 mg/dl (1.7-2.5) Total Bilirubin 0.1 mg/dl (0.2-1.3) Direct Bilirubin 0.00 mg/dl (0.00-0.20) Indirect Bilirubin 0.1 mg/dl (0-1.1) Aspartate Amino Transf (AST/SGOT) 18 IU/L (15-46) Alanine Aminotransferase (ALT/SGPT) 18 IU/L (13-69) Alkaline Phosphatase 57 IU/L (42-121) Total Protein 6.8 g/dl (6.1-8.1) Albumin 3.5 g/dl (3.3-4.9) Globulin 3.30 g/dl (1.3-3.2) Albumin/Globulin Ratio 1.06 LAKHWINDER PRADHAN NP Oct 06, 2018 15:50
--- NOTE | 2018-10-06 16:47 | CARRPT ---
DATE OF PROCEDURE: 10/06/2018 LEXISCAN CARDIOLITE STRESS TEST REASON FOR STRESS TESTING: Chest pain, assess for ischemia. BASELINE VITAL SIGNS AND ELECTROCARDIOGRAM: Pulse 66, blood pressure 149/76. Electrocardiogram reve als sinus rhythm, rate of 66, normal axis, normal intervals with inferior T-wave inversion. PROCEDURE: The patient underwent standard Lexiscan infusion protocol over 10 seconds followed by rad iolabeled tracer. The patient's test was stopped at completion of protocol. Maximal achieved blood pressure during the test 175/89. Maximum heart rate during the test 113. ELECTROCARDIOGRAM FINDINGS: The patient did not develop any new Lexiscan-induced ST or T-wave change s from baseline abnormalities. No documented PVCs. SYMPTOMS: The patient was marked complaints of chest pain during stress test that resolved in recove ry. IMPRESSION: 1. No Lexiscan-induced ST or T-wave changes from baseline abnormalities diagnostic for ischemia. 2. Positive complaints of chest pain during stress test that resolved in recovery. 3. No documented premature ventricular contractions during stress testing. 4. Report of nuclear images to follow in separate dictation. Dictated By: DANA DAVIS/NALLELY Conf#: [id number] DID#: [id number] CC: YVES LOPEZ MD;*EndCC*
--- NOTE | 2018-10-07 16:28 | RADRPT ---
Vent Rate: 68 bpm RR Interval: 0 msec NC Interval: 186 msec QRS Duration: 86 msec QT Interval: 414 msec QTC Interval: 440 msec P-R-T [place]: 67 - 51 - 61 degrees Poor data quality, interpretation may be adversely affected Normal sinus rhythm Normal ECG Electronically Signed By: Roland Pham
== END 2018-10-06 16:30 | disposition home or self-care (01) ==
LOC: E/R 21:22 → 6WM 10-05 00:06
PROVIDERS: ADMIT Family Medicine; ATTEND Family Medicine
DX: R07.89 Other chest pain (principal); J45.909 Unspecified asthma, uncomplicated; E66.9 Obesity, unspecified; Z68.36 Body mass index [BMI] 36.0-36.9, adult
CPT/HCPCS: 36415; 71045; 78452; 80048; 80053; 80061; 81025; 82550; 82553; 83036; 83735; 84100; 84443; 84484; 85025; 93005; 93017; 93306; 96374; 96375; A9500; A9505; J2270; J2405; J2785; Z7500; Z7502; Z7610; G0378